=== PATIENT | male | born 1960 | race Caucasian/White ===

== ENCOUNTER 2020-10-05 23:54 | Inpatient (IN) | payer MEDICARE, BC ==
[~2020-10-05] VITALS: Ht 172.7 cm; Wt 80.1 kg
[~2020-10-05 23:54] MED LIST: ACET325T26 PO; ACID1TAB7 PO; AMLO-150 PO; AMOX1TAB12 PO; AMOX1TAB64 PO; APIX5TAB PO; DOXY100T PO; FOLI1TAB32 PO; MAGN400T50 PO; MULT-482 PO; NITR50CA11 PO; THIA100T67 PO
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
[2020-10-06 00:28] LABS: MEAN CORPUSCULAR HEMOGLOBIN 31.8 pg (27.5-34.5); MEAN CORPUSCULAR HGB CONC 33.5 g/dL (33.2-36.2); MEAN PLATELET VOLUME 6.6 fL (7.4-10.4); PLATELET COUNT 654 x10^3/uL (130-400); RED BLOOD COUNT 4.54 x10^6/uL (4.38-5.82); RED CELL DISTRIBUTION WIDTH 17.3 % (9.4-14.8)
[2020-10-06] MEDS ORDERED: SODIUM CHLORIDE 0.9% 1,000ML IVBOLUS ONE (00:30)
[2020-10-06] MEDS ORDERED: SODIUM CHLORIDE FLUSH 10ML SYR IVF ONE (00:30)
[2020-10-06 00:39] LABS: ALANINE AMINOTRANSFERASE 33 U/L (12-78); ALBUMIN 2.9 g/dL (3.4-5.0); ANION GAP 14 mmol/L (5-15); CALCIUM 7.9 mg/dL (8.5-10.1); CHLORIDE 108 mmol/L (98-107); CREATININE 0.54 mg/dL (0.7-1.3)
[2020-10-06 00:41] LABS: ALKALINE PHOSPHATASE 248 U/L (45-117); BILIRUBIN,TOTAL 0.2 mg/dL (0.2-1.0); CREATINE KINASE, TOTAL 299 U/L (39-308); TOTAL PROTEIN 7.6 g/dL (6.4-8.2)
--- NOTE | 2020-10-06 00:59 | NUR ---
BEDSIDE REPORT FROM NATALIIA LORENZO
[2020-10-06 01:00] LABS: MD YES
[2020-10-06] MEDS ORDERED: VANCOMYCIN PER PHARMACY MC PRN ×2 (01:00→03:30)
[2020-10-06] MEDS ORDERED: PIPERACILLIN/TAZO 3.375 GM in DEXTROSE 5% 50 ML IVPB ONE (01:00)
[2020-10-06 01:03] LABS: LYMPHS% (MANUAL) 17 % (22-44); MONOS% (MANUAL) 3 % (2-9); REACTIVE LYMPHS % (MANUAL) 1 % (0-0); SEGS% (MANUAL) 79 % (42-75)
[2020-10-06 01:05] LABS: <PLATELET ESTIMATE> INCREASED; <PLT MORPHOLOGY> NORMAL PLT MORPH; ANISOCYTOSIS 2+
[2020-10-06 01:07] LABS: MICROSCOPIC AUTO
[2020-10-06] MEDS ORDERED: VANCOMYCIN 1,700 MG in SODIUM CHLORIDE 0.9% 250 ML IV ONE (01:30)
[2020-10-06] MEDS ORDERED: MAGNESIUM SULFATE 1 GM, THIAMINE 100 MG, FOLIC ACID 1 MG, MVI ADULT 10 ML in SODIUM CHL... IV ONE (01:30)
--- NOTE | 2020-10-06 01:32 | NUR ---
PT RETURNED FROM IMAGING.
--- NOTE | 2020-10-06 01:57 | NUR ---
PT SUPINE ON GURNEY, RESTING COMFORTABLY WITH EYES CLOSED. PT MEDICATED PER EMAR. NO ADDITIONAL NEEDS AT THIS TIME. CALL LIGHT AND BELONGINGS WITHIN REACH.
[2020-10-06] MEDS ORDERED: LORazepam 2 MG/ML, 1ML IVPush PRN (02:30)
[2020-10-06 03:06] LABS: INTERNATIONAL NORMALIZED RATIO 0.93 (0.93-1.1); PROTHROMBIN TIME 9.8 Seconds (9.6-11.5)
--- NOTE | 2020-10-06 03:28 | NUR ---
HOSPITALIST AT BEDSIDE
[2020-10-06] MEDS ORDERED: LACTATED RINGERS 1,000 ML IV SCH (03:30)
[2020-10-06] MEDS ORDERED: ONDANSETRON 2MG/ML, 2ML IVPush PRN (03:30)
[2020-10-06] MEDS ORDERED: INSTRUCTION SEE COMMENTS XX ONE (03:30)
[2020-10-06 04:25] LABS: AMPHETAMINE SCREEN, URINE Negative (Negative); BARBITURATE SCREEN, URINE Negative (Negative); BENZODIAZEPINE SCREEN, URINE Positive (Negative); CANNABINOID SCREEN, URINE Positive (Negative); COCAINE SCREEN, URINE Negative (Negative); METHADONE SCREEN, URINE Negative (Negative); OPIATE SCREEN, URINE Negative (Negative)
--- NOTE | 2020-10-06 05:04 | NUR ---
PT SUPINE ON GURNEY, RESTING COMFORTABLY WITH EYES CLOSED. PT RE POSITIONED WITH PILLOW ON BED AND PROVIDED WATER. PT DENIES ANY ADDITIONAL NEEDS AT THIS TIME. PT EXHIBITS MILD TREMORS UPON RE-EVAL, WILL MEDICATE PT PER EMAR AND ETOH WITHDRAWL SYMPTOMS. CALL LIGHT AND PERSONAL BELONGINGS WITHIN REACH. WILL CONTINUE TO MONITOR CLOSELY.
[2020-10-06] MEDS ORDERED: LORazepam 2 MG/ML, 1ML ONE (05:10)
--- NOTE | 2020-10-06 05:32 | NUR ---
PT TRANSFERED FROM ED [facility] TO HOSPITAL BED. PT REPOSITIONED WITH PILLOWS FOR COMFORT. PT PROVIDED WATER PER REQUEST. PT DENIES ANY ADDITIONAL NEEDS AT THIS TIME. CALL LIGHT AND BELONGINGS WITHIN REACH, CONTINUOUS MONITORING REMAINS IN PLACE.
--- NOTE | 2020-10-06 06:49 | NUR ---
REPORT TO JEANINE LORENZO
--- NOTE | 2020-10-06 06:50 | NUR ---
Report received and care assumed. Per report, pt has multiple wounds over his body, is still intoxicated from alcohol, and was given Ativan 1mg IVP around 0500 this A.M. for mild tremors. Pt is waiting for ICU bed assignment to be moved upstairs.
--- NOTE | 2020-10-06 07:00 | NUR ---
Pt found sleeping soundly with snoring respirations. VSS and pt on RA. Call light in reach and white board updated.
--- NOTE | 2020-10-06 07:37 | NUR ---
IVF held for CT and pt taken to CT via bed for repeat head CT as ordered by admitting MD.
--- NOTE | 2020-10-06 08:00 | NUR ---
Pt returned from CT without acute changes while off unit. Initial shift assessment completed. Multiple wounds found and to be documented on separate note with wound care and measurements. Pt linens changed with large amount UOP noted on chucks pad placed between penis and scrotum and dirt/debris on buttocks/back. Full bed bath completed with foaming cleanser and warm, wet washcloths. All extra medical stickers removed and clean gown applied. Pt found to be very hot to touch and covered with only a sheet. Oral temp reading of 98.8F resulted but feels hotter than that to touch. Will reassess in 1 hour after pt under sheet only. Water provided and pt swallow eval completed and passed without issue. CIWA score of zero currently. Neuro found to be A/Ox4, denies MILTON, moves upper extremities equally and strong, and hx paraplegia so no movement below waist is baseline for pt.
[2020-10-06] MEDS: PIPERACILLIN/TAZO 3.375 GM in DEXTROSE 5% 50 ML IV SCH ×3 (08:37→22:09)
--- NOTE | 2020-10-06 08:45 | NUR ---
APA given for axillary temp of 99.8F at this time. Awaiting med request from pharmacy for Zosyn and Thiamine IVPBs. Addendum: 10/06/20 at 1227 by DEBBY APAP given...
[2020-10-06] MEDS ORDERED: ACETAMINOPHEN 325 MG TABLET ONE (08:51)
[2020-10-06] MEDS: ACETAMINOPHEN 325 MG TABLET PO PRN (08:54)
[2020-10-06] MEDS ORDERED: PHARMACOKINETIC MONITORING MC PRN (09:00)
[2020-10-06] MEDS ORDERED: THIAMINE 100MG TABLET PO/NG SCH (09:00)
[2020-10-06] MEDS ORDERED: PHARMACY INSTRUCTION MC PRN (09:00)
[2020-10-06] MEDS ORDERED: PHARMACOKINETIC CONSULTATION MC ONE (09:00)
[2020-10-06] MEDS ORDERED: VANCOMYCIN 1,800 MG in SODIUM CHLORIDE 0.9% 250 ML IV ONE (09:00)
--- NOTE | 2020-10-06 09:00 | NUR ---
Wound care completed to all wounds as follows: 2 open wounds to L buttock present, proximal open area is 2cm x 2.25cm, distal open area is 3.25cm x 2cm; wound to coccyx with open area to R side of coccyx present, 3cm x 3.5cm scar with 2cm x 1.25cm open area; R lateral knee area wound scar with scab present, 7cm x 2cm scar area with 3.5cm x 0.75cm scabbed area in proximal center of scar; R lateral lower leg medium pink scar present 8cm x 3.5cm; R lateral ankle over bony prominence open wound present 1.5cm x 1cm; R lateral foot along edge of food scar with open wound in center of scar present, 5.5cm x 4cm scar with 4cm x 2.25cm open area; L posterolateral heel open wound over bony prominence with eschar-like center present 4.5cm x 5.5cm; L lateral foot scar with open wound in center along edge of foot present, 2cm x 2cm scar with 1cm x 1cm open area; R buttock-thigh crease area open wound present 2.5cm x 8cm; L proximal knee open wound area present 3cm x 2.25cm; L distal knee open area present 0.5cm x 1.25cm; R medial-proximal knee open wound area present 2.75cm x 2.75cm. 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 Other skin issues found as follows: scabs to L posterior hand, L posterior-distal elbow area, L posterior-proximal elbow area, R posterior-lateral elbow, scabbed scratch napier to L lateral hip/thigh area, L lateral-proximal lower leg area, L tops of toes, R top of toes, and bilat anterior shins, and R anterolateral upper arm; Reddness to large area from L buttock open wounds across L lower back and around to L lateral hip and thigh where scratch napier overly redness with redness to penis and scrotum noted with oozing yellow drng from open excoriation areas x2 to anterior tip of penis, redness with edema to bilat feet present Lfoot > R foot. LLQ abd colostomy present with pink, moist, round bud and skin intact without s/s excoriation/irritation around bud with clean intact colostomy bag in place with no stool present at this time. Clean gown applied and new clean chucks pads under pt and between scrotum and penis applied due to urine soiling found after turning pt for wound care. Franco boots applied to bilat feet and pt repositioned up in bed to keep feet from pressing against foot board. HOB elevated back to 30 degrees with call light in reach and warm blanket added for pt c/o chills with Tylenol on board x 40 minutes ago with good effect in increased comfort noted by pt on reassessment.
[2020-10-06] MEDS: THIAMINE 200 MG in SODIUM CHLORIDE 0.9% 50 ML IV SCH (09:38)
--- NOTE | 2020-10-06 10:00 | NUR ---
Pt sleeping with snoring respirations. VSS.
--- NOTE | 2020-10-06 11:00 | NUR ---
VSS and pt sleeping with snoring respirations. Water in reach of pt.
--- NOTE | 2020-10-06 11:20 | NUR ---
Pt rolled onto left lateral side with pillow behind back and between knees.
[2020-10-06] MEDS: VANCOMYCIN 1,300 MG in SODIUM CHLORIDE 0.9% 250 ML IV SCH (11:44)
--- NOTE | 2020-10-06 11:53 | NUR ---
Documented 1100 VS at this time. Pt full assessment completed without acute change noted. CIWA completed and neuro assessment without changes. New cup of ice water brought to bedside and within pt reach. Pt offered food tray and declined at this time. Pt aware to call if he decides he wants to eat later. Vanco gtt started early inorder to be completed in time for Zosyn next dose to be started within expected timeframe.
--- NOTE | 2020-10-06 12:00 | NUR ---
CIWA of 1 due to very mild headache/fullness. VSS. Still awaiting ICU bed. Pt reoriented to reason for being here today.
--- NOTE | 2020-10-06 13:08 | NUR ---
VSS and pt sleeping at this time. Neuro check remains unchanged. Vanco still running at this time and Zosyn due at this time requested from pharmacy Awaiting delivery of Zosyn and completion of Vanco. Pt rolled onto R lateral side with pillow behing back and between knees.
--- NOTE | 2020-10-06 13:54 | NUR ---
Dr. Quiroz at bedside for assessment. States CT Head was supposed to have been for noon today, not for 0800. Discussion of plan for repeat CT Head this afternoon around 1600 and then possible downgrade to med/tele status if subdural ICB stable made with this RN. Request for scheduled Librium PO for CIWA made.
[2020-10-06] MEDS ORDERED: CHLORDIAZEPOXIDE 25 MG CAPSULE ONE (14:08)
[2020-10-06] MEDS: CHLORDIAZEPOXIDE 25 MG CAPSULE PO SCH ×2 (14:18→22:09)
--- NOTE | 2020-10-06 14:20 | NUR ---
Pt given Librium PO without issue as ordered for ETOH withdrawal management. Pt repositioned onto back L side at this time. New chucks pad placed between penis and scrotum with large amount uop noted on used pad and pericare completed. Gown change as pt urinated on it with pericare. Fresh cup of ice water brought to pt bedside. Total PO intake thus far is 360mL.
--- NOTE | 2020-10-06 14:32 | NUR ---
Report given to meal break RNReinaldo, and care transferred.
--- NOTE | 2020-10-06 15:04 | NUR ---
Report received from MAURA Najera and care reassumed. Per report no cares provided while this RN was on break. Quick check of pt reveals no acute changes from last assessment found.
--- NOTE | 2020-10-06 16:26 | NUR ---
IVF stopped and site saline locked for transport to CT via bed with specimen technician for repeat head CT as ordered.
--- NOTE | 2020-10-06 16:35 | NUR ---
Pt back from CT without acute change noted from last assessment. Mild tremors present with mild MILTON reported. Pt pericare completed with clean chucks pad placed under penis and pt repositioned onto R side with pillow behind back. Full assessment completed, IVF restarted via pump, and R AC saline locked after flushed clear. Call light in reach, personal cellphone in hand but not able to get a clear signal for dialing out, and 2 cups fresh ice water provided. Total PO intake now 580mL.
--- NOTE | 2020-10-06 16:57 | NUR ---
Dr. Quiroz called with repeat head CT results and request for downgrade to med/tele status. MD states to change status request to med/tele. Throughput RN notified.
--- NOTE | 2020-10-06 17:45 | NUR ---
Report called to MAURA Franco and pt readied for transfer to floor.
[2020-10-06 20:13] VITALS: BP 135/77
[2020-10-07 01:50] VITALS: BP 152/92
[2020-10-07] MEDS: VANCOMYCIN 1,300 MG in SODIUM CHLORIDE 0.9% 250 ML IV SCH ×2 (01:53→13:35)
[2020-10-07] MEDS: CHLORDIAZEPOXIDE 25 MG CAPSULE PO SCH ×4 (03:00→20:02)
[2020-10-07] MEDS ORDERED: THIA100T27 PO (03:19)
[2020-10-07] MEDS ORDERED: FOLI1TAB32 PO (03:19)
[2020-10-07] MEDS ORDERED: MULT-826 PO (03:19)
[2020-10-07] MEDS ORDERED: AMLO-211 PO (03:19)
[2020-10-07] MEDS: PIPERACILLIN/TAZO 3.375 GM in DEXTROSE 5% 50 ML IV SCH ×4 (03:43→21:04)
[2020-10-07 04:43] LABS: CLOSTRIDIUM DIFFICILE ANTIGEN POSITIVE; CLOSTRIDIUM DIFFICILE TOXIN NEGATIVE (Negative)
[2020-10-07 06:19] LABS: BASOPHILS % (AUTO) 1 % (0-1); EOSINOPHILS % (AUTO) 1 % (1-7); LYMPHOCYTES % (AUTO) 8 % (22-44); MD NO; MEAN CORPUSCULAR HGB CONC 33.9 g/dL (33.2-36.2); MEAN PLATELET VOLUME 6.9 fL (7.4-10.4); MONOCYTES % (AUTO) 5 % (2-9); NEUTROPHILS % (AUTO) 86 % (42-75); PLATELET COUNT 483 x10^3/uL (130-400); RED BLOOD COUNT 4.07 x10^6/uL (4.38-5.82); RED CELL DISTRIBUTION WIDTH 16.8 % (9.4-14.8)
[2020-10-07 06:52] LABS: ALANINE AMINOTRANSFERASE 25 U/L (12-78); ALBUMIN 2.5 g/dL (3.4-5.0); ANION GAP 9 mmol/L (5-15); CALCIUM 8.2 mg/dL (8.5-10.1); CHLORIDE 109 mmol/L (98-107); CREATININE 0.61 mg/dL (0.7-1.3)
[2020-10-07 06:54] LABS: ALKALINE PHOSPHATASE 219 U/L (45-117); BILIRUBIN,TOTAL 0.8 mg/dL (0.2-1.0); TOTAL PROTEIN 6.7 g/dL (6.4-8.2)
[2020-10-07 08:39] VITALS: BP 160/84
[2020-10-07] MEDS: THIAMINE 200 MG in SODIUM CHLORIDE 0.9% 50 ML IV SCH (08:56)
[2020-10-07] MEDS: LORazepam 2 MG/ML, 1ML IVPush PRN ×3 (10:18→20:02)
[2020-10-07] MEDS ORDERED: AMLODIPINE 10 MG TAB PO SCH (11:30)
[2020-10-07 12:09] VITALS: BP 169/85
[2020-10-07 19:45] VITALS: BP 153/81
[2020-10-07] MEDS: ACETAMINOPHEN 325 MG TABLET PO PRN (20:02)
[2020-10-08] MEDS: ACETAMINOPHEN 325 MG TABLET PO PRN (00:08)
[2020-10-08] MEDS: VANCOMYCIN 1,300 MG in SODIUM CHLORIDE 0.9% 250 ML IV SCH (01:05)
[2020-10-08 01:31] VITALS: BP 128/80
[2020-10-08] MEDS: CHLORDIAZEPOXIDE 25 MG CAPSULE PO SCH (02:11)
[2020-10-08] MEDS: PIPERACILLIN/TAZO 3.375 GM in DEXTROSE 5% 50 ML IV SCH (03:32)
[2020-10-08] MEDS: LORazepam 2 MG/ML, 1ML IVPush PRN (03:40)
[2020-10-08 06:30] VITALS: BP 134/77
[2020-10-08 07:08] LABS: BASOPHILS % (AUTO) 1 % (0-1); EOSINOPHILS % (AUTO) 2 % (1-7); LYMPHOCYTES % (AUTO) 20 % (22-44); MEAN CORPUSCULAR HGB CONC 33.9 g/dL (33.2-36.2); MEAN PLATELET VOLUME 6.7 fL (7.4-10.4); MONOCYTES % (AUTO) 8 % (2-9); NEUTROPHILS % (AUTO) 69 % (42-75); PLATELET COUNT 471 x10^3/uL (130-400); RED BLOOD COUNT 3.92 x10^6/uL (4.38-5.82); RED CELL DISTRIBUTION WIDTH 17.2 % (9.4-14.8)
[2020-10-08 07:11] LABS: MD NO
[2020-10-08 07:20] LABS: ALANINE AMINOTRANSFERASE 26 U/L (12-78); ALBUMIN 2.6 g/dL (3.4-5.0); ANION GAP 4 mmol/L (5-15); CALCIUM 8.2 mg/dL (8.5-10.1); CHLORIDE 106 mmol/L (98-107); CREATININE 0.79 mg/dL (0.7-1.3)
[2020-10-08 07:22] LABS: ALKALINE PHOSPHATASE 205 U/L (45-117); BILIRUBIN,TOTAL 0.6 mg/dL (0.2-1.0); TOTAL PROTEIN 6.8 g/dL (6.4-8.2)
== END 2020-10-08 08:42 | disposition left against medical advice (07) | DRG 871 ==
LOC: ED 10-06 01:43 → EDIP 10-06 01:44 → 4EST 10-06 18:06
PROVIDERS: ADMIT Family Medicine; ATTEND Hospitalist
DX: A41.9 Sepsis, unspecified organism (principal); L89.893 Pressure ulcer of other site, stage 3; S06.5X0A Traumatic subdural hemorrhage without loss of consciousness, initial encounter; G92 Toxic encephalopathy; F10.139 Alcohol abuse with withdrawal, unspecified; G82.20 Paraplegia, unspecified; N10 Acute pyelonephritis; L03.116 Cellulitis of left lower limb; L03.115 Cellulitis of right lower limb; N39.0 Urinary tract infection, site not specified; N31.9 Neuromuscular dysfunction of bladder, unspecified; Z93.3 Colostomy status; Z99.3 Dependence on wheelchair; W05.0XXA Fall from non-moving wheelchair, initial encounter; Y93.89 Activity, other specified; Y92.89 Other specified places as the place of occurrence of the external cause; Y99.8 Other external cause status; Z80.0 Family history of malignant neoplasm of digestive organs; F15.90 Other stimulant use, unspecified, uncomplicated; F41.9 Anxiety disorder, unspecified; L89.892 Pressure ulcer of other site, stage 2; L89.159 Pressure ulcer of sacral region, unspecified stage; R62.7 Adult failure to thrive; Z86.718 Personal history of other venous thrombosis and embolism; Z87.440 Personal history of urinary (tract) infections; Z87.891 Personal history of nicotine dependence; Z53.29 Procedure and treatment not carried out because of patient's decision for other reasons
CPT/HCPCS: 36415; 70450; 71045; 72125; 80053; 80202; 80307; 80320; 81001; 82550; 83605; 83735; 84100; 85025; 85610; 85730; 87040; 87077; 87086; 87186; 87324; 87493; 93005; 99291; G0378; J2543; J3370; J3411; J3475; G0480; J2060; J7030; J7050; J7120

== ENCOUNTER 2020-11-14 13:33 | Emergency (ER) | payer MEDICARE, BC ==
[~2020-11-14] VITALS: Ht 185.4 cm; Wt 100.0 kg
[~2020-11-14 13:33] MED LIST changes: +AMLO-211 PO; +MULT-826 PO; +THIA100T27 PO
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
--- NOTE | 2020-11-14 14:25 | NUR ---
PT AWAKE IN ROOM. PT RESTING ON GURNEY. NADN. ABDI.
--- NOTE | 2020-11-14 14:33 | NUR ---
THIS RN ATTEMPTED TO CONTACT PT'S AT [phone]. NO ANSWER. MESSAGE LEFT.
[2020-11-14] MEDS ORDERED: THIAMINE 100MG TABLET ONE (14:37)
[2020-11-14] MEDS ORDERED: THIAMINE 100MG TABLET PO ONE (15:00)
--- NOTE | 2020-11-14 15:33 | NUR ---
PT RESTING ON GURNEY. AOX4. ANIAN. VSS. SPARKS, RYAN AT BEDSIDE FOR EVAL.
--- NOTE | 2020-11-14 16:23 | NUR ---
PT AOX4. STATES HE WANTS TO GO HOME. DISCUSSED CASE W/ RYAN SPARKS AND ERP DR. CHAKRABORTY. PT REFUSING TO GO TO REHAB. PT STATES HE JUST WANTS TO GO HOME. [facility] NOTIFIED OF NEED. PICKUP SCHEDULED FOR 1899 TONIGHT.
--- NOTE | 2020-11-14 16:26 | NUR ---
PT RESTING ON GURNEY. NADN. ABDI.
[2020-11-14 17:22] VITALS: BP 154/92
--- NOTE | 2020-11-14 17:23 | NUR ---
PT AWAKE IN ROOM. DEMANDING A CIGARETTE. EDUCATED THAT HE IS NOT ALLOWED TO SMOKE IN HOSPITAL. VERBALIZES UNDERSTANDING. RESTING ON GURNEY. NADN. ABDI.
== END 2020-11-14 18:02 | disposition home or self-care (01) ==
LOC: ED 13:54
DX: F10.220 Alcohol dependence with intoxication, uncomplicated (principal); Z72.9 Problem related to lifestyle, unspecified; Y90.0 Blood alcohol level of less than 20 mg/100 ml
CPT/HCPCS: 99285